=== PATIENT | female | born 1945 | race Caucasian/White ===

== ENCOUNTER 2020-07-17 06:48 | Emergency (ER) | payer OTHER ==
[~2020-07-17] VITALS: Ht 152.4 cm; Wt 82.6 kg
[2020-07-17 06:58] VITALS: BP 126/75; Ht 152.4 cm; Wt 82.6 kg
[2020-07-17 09:19] LABS: BASOPHIL % 0.8 % (0.2-1.3); PLATELET COUNT 251 x10^3mcL (179-408)
[2020-07-17 09:41] LABS: POTASSIUM SERUM 4.1 mmol/L (3.5-5.1); SODIUM SERUM 141 mmol/L (136-145)
[2020-07-17 09:46] LABS: CALCIUM 9.2 mg/dL (8.5-10.1); CARBON DIOXIDE 25.3 mmol/L (21-32); CHLORIDE SERUM 106 mmol/L (98-107); CREATININE SERUM 0.9 mg/dL (0.6-1.0); GLUCOSE SERUM 109 mg/dL (74-106)
[2020-07-17 09:51] LABS: ALBUMIN 4.1 g/dL (3.4-5.0); ALKALINE PHOSPHATASE 105 U/L (46-116); ALT/SGPT 31 U/L (14-59); AST/SGOT 11 U/L (15-37); BILIRUBIN TOTAL 0.67 mg/dL (0.20-1.00)
== END 2020-07-17 10:24 | disposition home or self-care (01) ==
LOC: ED 06:48
DX: R07.89 Other chest pain (principal); I10 Essential (primary) hypertension; M54.6 Pain in thoracic spine; Z98.890 Other specified postprocedural states